=== PATIENT | female | born 1960 | race Caucasian/White ===

== ENCOUNTER 2022-10-24 13:32 | Inpatient (IN) | payer OTHER ==
[~2022-10-24] VITALS: Ht 162.6 cm; Wt 83.9 kg
[~2022-10-24 13:32] MED LIST: IBUP-2213 PO; NAPR-54 PO
[2022-10-24 14:03] VITALS: BP 119/75
[2022-10-24] MEDS ORDERED: ALBUTEROL SULFATE/IPRATROPIU 3 ML SOL IH ONE (14:10)
[2022-10-24] MEDS ORDERED: methylPREDNISolone SS 125 MG in WATER STERILE 2 ML IV ONE (14:15)
[2022-10-24] MEDS ORDERED: methylPREDNISolone SS 125 MG/2 ML VIAL ONE (14:16)
[2022-10-24 14:26] LABS: BASOPHILS # (AUTO) 0.1 K/uL (0.00-0.22); BASOPHILS % (AUTO) 1.5 % (0.0-2.0); EOSINOPHILS # (AUTO) 0.6 K/uL (0-0.4); EOSINOPHILS % (AUTO) 9.9 % (0.0-4.0); HEMATOCRIT 36.4 % (36-48); HEMOGLOBIN 11.7 g/dL (12.0-16.0); LYMPHOCYTES # (AUTO) 1.9 K/uL (2.5-16.5); LYMPHOCYTES % (AUTO) 30.5 % (20.5-51.1); MEAN CORPUSCULAR HEMOGLOBIN 27 pg (27-31); MEAN CORPUSCULAR HGB CONC 32 g/dL (33-37); MEAN CORPUSCULAR VOLUME 84.5 fL (80-94); MONOCYTES # (AUTO) 0.5 K/uL (0.8-1.0); MONOCYTES % (AUTO) 7.9 % (1.7-9.3); NEUTROPHILS # (AUTO) 3.1 K/uL (1.8-7.7); NEUTROPHILS % (AUTO) 50.2 % (42.2-75.2); PLATELET COUNT (AUTO) 316 K/uL (140-450); RED BLOOD CELL COUNT(AUTO) 4.31 MIL/uL (4.20-5.40); RED CELL DISTRIBUTION WIDTH 17.7 % (11.6-13.7); WHITE BLOOD COUNT (AUTO) 6.3 K/uL (4.8-10.8)
[2022-10-24] MEDS ORDERED: methylPREDNISolone SS 125 MG/2 ML VIAL IV ONE (14:40)
[2022-10-24 14:50] LABS: ALBUMIN 2.7 g/dL (3.4-5.0); ANION GAP 12.4 (8-16); CARBON DIOXIDE 31.6 mmol/L (21-32); CREATININE 0.9 mg/dL (0.6-1.3); TOTAL BILIRUBIN 0.2 mg/dL (0.0-1.0)
[2022-10-24] MEDS ORDERED: ACETAMINOPHEN 325 MG TAB PO PRN (16:55)
[2022-10-24] MEDS ORDERED: ALBUTEROL 0.083% 2.5 MG/3 ML NEBU INH PRN (16:55)
[2022-10-24] MEDS ORDERED: ONDANSETRON 4 MG/2 ML VIAL IVP PRN (16:55)
[2022-10-24] MEDS ORDERED: LORazepam 2 MG/ML VIAL IVP PRN (16:55)
[2022-10-24] MEDS ORDERED: HYDR-5080 PO (17:49)
[2022-10-24] MEDS ORDERED: METO25TA PO (17:49)
[2022-10-24] MEDS ORDERED: POTA10TA70 PO (17:49)
[2022-10-24] MEDS ORDERED: LACT-103 PO (17:49)
[2022-10-24] MEDS ORDERED: BACL10TA4 PO (17:49)
[2022-10-24] MEDS ORDERED: MIRT-91 PO (17:49)
[2022-10-24] MEDS ORDERED: FURO-570 PO (17:49)
[2022-10-24] MEDS ORDERED: MELO10CA3 PO (17:49)
[2022-10-24] MEDS ORDERED: methylPREDNISolone SS 40 MG in WATER STERILE 1 ML IV SCH (18:00)
[2022-10-24] MEDS: methylPREDNISolone SS 40 MG/ML VIAL IVP SCH (18:00)
[2022-10-24] MEDS: LEVOFLOXACIN 500 MG/D5W PREMIX 100 ML IV SCH (18:35)
[2022-10-24] MEDS ORDERED: IPRATROPIUM 0.02% 0.5 MG/2.5 ML NEBU INH SCH (19:00)
[2022-10-24 20:22] VITALS: BP 132/72
[2022-10-24] MEDS: MORPHINE SULFATE 2 MG/ML SYR IVP PRN (22:03)
[2022-10-25] VITALS: BP 102/75
[2022-10-25] MEDS: methylPREDNISolone SS 40 MG/ML VIAL IVP SCH ×4 (00:23→17:33)
[2022-10-25 04:00] VITALS: BP 114/73
[2022-10-25 07:40] LABS: BASOPHILS % (AUTO) 0.2 % (0.0-2.0); HEMATOCRIT 35.4 % (36-48); HEMOGLOBIN 11.3 g/dL (12.0-16.0); LYMPHOCYTES # (AUTO) 0.9 K/uL (2.5-16.5); LYMPHOCYTES % (AUTO) 19.5 % (20.5-51.1); MEAN CORPUSCULAR HEMOGLOBIN 27 pg (27-31); MEAN CORPUSCULAR HGB CONC 32 g/dL (33-37); MEAN CORPUSCULAR VOLUME 85.5 fL (80-94); MONOCYTES # (AUTO) 0.1 K/uL (0.8-1.0); MONOCYTES % (AUTO) 1.1 % (1.7-9.3); NEUTROPHILS # (AUTO) 3.6 K/uL (1.8-7.7); NEUTROPHILS % (AUTO) 79.2 % (42.2-75.2); PLATELET COUNT (AUTO) 307 K/uL (140-450); RED BLOOD CELL COUNT(AUTO) 4.15 MIL/uL (4.20-5.40); RED CELL DISTRIBUTION WIDTH 17.8 % (11.6-13.7); WHITE BLOOD COUNT (AUTO) 4.6 K/uL (4.8-10.8)
[2022-10-25 08:00] VITALS: BP 129/82
[2022-10-25 08:06] LABS: MAGNESIUM 1.9 mg/dL (1.8-2.4); PHOSPHORUS 3.9 mg/dL (2.5-4.9)
[2022-10-25 08:15] LABS: ANION GAP 11.1 (8-16); CREATININE 0.6 mg/dL (0.6-1.3); POTASSIUM 4.1 mmol/L (3.5-5.1)
[2022-10-25 12:00] VITALS: BP 147/82
[2022-10-25] MEDS ORDERED: LEVO-481 PO (13:47)
[2022-10-25] MEDS ORDERED: PRED20TA5 PO (13:47)
[2022-10-25] MEDS: MORPHINE SULFATE 2 MG/ML SYR IVP PRN (15:20)
[2022-10-25 16:00] VITALS: BP 120/73
[2022-10-25 16:18] VITALS: BP 129/82
[2022-10-25] MEDS: LEVOFLOXACIN 500 MG/D5W PREMIX 100 ML IV SCH (17:51)
== END 2022-10-25 18:59 | disposition home or self-care (01) | DRG 189 ==
LOC: MED 13:32 → MTU 16:55
PROVIDERS: ADMIT Hospitalist; ATTEND Hospitalist
DX: J96.01 Acute respiratory failure with hypoxia (principal); J44.1 Chronic obstructive pulmonary disease with (acute) exacerbation; Z20.822 Contact with and (suspected) exposure to COVID-19; E66.01 Morbid (severe) obesity due to excess calories; I11.0 Hypertensive heart disease with heart failure; I50.9 Heart failure, unspecified; E78.5 Hyperlipidemia, unspecified; Z90.49 Acquired absence of other specified parts of digestive tract; Z68.31 Body mass index [BMI] 31.0-31.9, adult
CPT/HCPCS: 36415; 36600; 71045; 80048; 80053; 82803; 83605; 83735; 83880; 84100; 84484; 85025; 87040; 93005; 94640; 96374; 99291; J1956; J2060; J2270; J2405; J2920; J2930; Q0092